=== PATIENT | female | born 1980 | race Caucasian/White ===

== ENCOUNTER → 2017-10-18 08:23 | Outpatient (CLI) | payer BC, SELFPAY ==
[2017-10-18 09:27] LABS: Hematocrit 38.9 % (37-47); Hemoglobin 12.8 g/dl (12.0-15.0); Mean Corp Hgb Conc 32.9 g/gl (32-36); Mean Corpuscular Hgb 31.1 pg (27.0-32.0); Mean Corpuscular Volume 94.6 fL (81-99); Mean Platelet Vol. 10.4 fl (6.2-12.0); Platelet Count 305 K/mm3 (150-450); RBC Distribution Width CV 12.9 % (11.6-14.6); RBC Distribution Width SD 44.5 fl (35.1-43.9); Red Blood Count 4.11 M/mm3 (4.2-5.4); Scan Indicated on CBC? Y/N NO; White Blood Count 3.7 K/mm3 (4.4-11.0)
[2017-10-18 09:41] LABS: Albumin, Serum 3.7 g/dL (3.2-5.0); BUN 11 mg/dL (7-18); Creatinine, Serum 0.73 mg/dL (0.55-1.02); EST Glomerular Filtration Rate 94 mL/min (>60); Est Glom Filt Rate - Afr Amer 113 mL/min (>60); Glucose 142 mg/dL (74-106); Protein, Total 7.7 g/dL (6.4-8.2)
[2017-10-18 09:42] LABS: ALB/GLOB Ratio 0.9 RATIO (0.9-2.4); AST(SGOT) 11 U/L (15-37); Alanine Aminotransfer ALT/SGPT 18 U/L (13-56); Alkaline Phosphatase 50 U/L (45-117); Anion Gap 4 (5-15); Calcium,Total 8.4 mg/dL (8.5-10.1); Chloride 105 mmol/L (98-107); Cholesterol 176 mg/dL (200); High Density Lipoprotein 41 mg/dL; Potassium 4.2 mmol/L (3.5-5.1); Sodium Level 139 mmol/L (136-145); Triglycerides 111 mg/dL; Very Low Density Lipoprotein 22 mg/dL (5-40)
[2017-10-18 09:45] LABS: Microalbumin,Random Urine 5.4 mg/L (NO RANGE EST.)
== END ==
PROVIDERS: PCP Nurse Practitioner Adult Health; Visit Provider Nurse Practitioner Adult Health
DX: E11.9 Type 2 diabetes mellitus without complications (principal); Z13.220 Encounter for screening for lipoid disorders
CPT/HCPCS: 36415; 80053; 80061; 82043; 85027

== ENCOUNTER 2018-01-05 04:11 | Emergency (ER) | payer BC, MEDICAID, SELFPAY ==
[2018-01-05 04:12] VITALS: BP 148/88; PULSE 77; RESP 18; TEMP 36.8; O2SAT 98; BMI 41.0
--- NOTE | 2018-01-05 04:40 | ED.DCSUM_ITS ---
History of Present Illness Chief Complaint: Upper Extremity Injury Informant: Patient Onset: Days - 3-4 Timing: Continuous Quality: shock-like Location: BUE, worse on right; includes some fingers but not all Current Severity: Moderate Maximum Severity: Moderate Worsened by: nothing Relieved by: nothing Associated Symptoms: weakness RUE, paresthesias Narrative: Patient has had this off and on for multiple months to almost a year. She saw her doctor and is being worked up for possible MS, given the paresthesias she is having, and has an MRI of the brain ordered and preapproved. She is having no headaches or neck pain or diplopia. No recent head or neck injury. No symptoms in her legs. Pain is worse tonight. Past Medical History - Allergies and Home Meds Allergies/Adverse Reactions: Allergies pioglitazone [From [employer]] Allergy (Verified 02/25/17 12:09) ABSCESS ABSCESS FORMATION Primary Care Physician: Pat Hancock NP-C [Primary Care Provider] - 3-5 Days if not improving Smoking Status: Never smoker Review of Systems All systems negative except as indicated Musculoskeletal: Denies: Neck pain, Back pain Skin: Denies: Rash Neurological: Reports: Weakness, Parasthesia. Denies: Headache Physical Exam Vital Signs/Narrative: Vital Signs Temp Pulse Resp BP Pulse Ox 01/05/18 04:12 98.2 F 77 18 148/88 H 98 General: Well nourished, Well developed Head: Normocephalic, Atraumatic Eyes: Perrl, EOMI ENT: Moist mucous membranes, No rhinorrhea Neck: Supple, Nontender, No lymphadenopathy Extremities: Nontender, No edema Skin: Normal color, No rash Neurological: Alert, Oriented x3, Cranial nerves II-XII grossly intact, Normal Strength, Parasthesia - RUE Psychological: Normal affect Diagnostic/Tx/Re-eval - Medical Decision Making I distracted the patient's head, this greatly improved her upper extremity paresthesias. She is not objectively weak. I feel this is probably radicular in nature. I discussed this with the patient, and advised that she see if an MRI of the neck could be added to her brain, advised to discuss with her PCP after the weekend. Gave her an injection of Toradol here, which she was comfortable with. ED Disposition - Plan for ED Patient: Disposition: Home or Assisted Living Chief Complaint: Upper Extremity Injury Diagnosis: Cervical radiculopathy Instructions: ED Cervical Radiculopathy Referrals: Pat Hancock NP-C [Primary Care Provider] - 3-5 Days if not improving
[2018-01-05] MEDS: Ketorolac 60 MG/2 ML Vial IM (04:48)
[2018-01-05 05:14] VITALS: BP 136/78; PULSE 85; RESP 18; O2SAT 98
== END 2018-01-05 05:15 | disposition home or self-care (01) ==
LOC: ED 04:44
PROVIDERS: Emergency Provider Emergency Medicine; PCP Nurse Practitioner Adult Health
DX: M54.12 Radiculopathy, cervical region (principal); Z79.84 Long term (current) use of oral hypoglycemic drugs; Z79.899 Other long term (current) drug therapy
CPT/HCPCS: 96372; 99282

== ENCOUNTER 2018-01-11 08:43 | Emergency (ER) | payer BC, MEDICAID, SELFPAY ==
[2018-01-11 08:44] VITALS: BP 155/94; PULSE 70; RESP 16; TEMP 36.4; O2SAT 97; BMI 41.0
--- NOTE | 2018-01-11 08:56 | CT_ITS ---
STUDY: CT BRAIN WITHOUT CONTRAST REASON FOR EXAM: Female, 37 years old. Right arm tremors and tingling. RADIATION DOSAGE (If Supplied By Facility): CTDIvol = ( 44.99 ) mGy, DLP = ( 779.24 ) mGycm TECHNIQUE: Transaxial CT imaging of the brain was performed without administration of intravenous contrast material. Individualized dose optimization techniques were used for this CT. COMPARISON: None. FINDINGS: Normal soft tissue structures. Normal calvarium. Normal size ventricles and extra-axial spaces for the patient's age. Normal white matter tracts of the cerebral hemispheres. Normal basal ganglia and thalami. Normal brainstem. Normal cerebellum. There is no intracranial hemorrhage. There are no findings of an acute ischemic infarction. Normal visualized paranasal sinuses. CT/Brain/Head without Contrast IMPRESSION: Normal unenhanced CT scan of the brain. Electronically Signed: Leobardo Urbina MD at 9:44 EDT Tel [phone], Service support ,
--- NOTE | 2018-01-11 08:57 | CT_ITS ---
STUDY: CT CERVICAL SPINE WITHOUT CONTRAST REASON FOR EXAM: Female, 37 years old. Right arm tremors and tingling. RADIATION DOSAGE (If Supplied By Facility): CTDIvol = ( 28.91 ) mGy, DLP = ( 582.91 ) mGycm TECHNIQUE: High resolution transaxial imaging was performed without contrast material. Sagittal and coronal images were reconstructed. Individualized dose optimization techniques were used for this CT. COMPARISON: None FINDINGS: Normal craniovertebral junction. Normal anterior atlantoaxial articulation. Normal odontoid process. There is straightening of the normal cervical lordosis. Normal vertebral bodies and posterior osseous elements. C2-3: Normal endplates. Normal disc height and morphology. Normal central canal and intervertebral neuroforamina. C3-4: Normal endplates. Normal disc height and morphology. Normal central canal and intervertebral neuroforamina. C4-5: Normal endplates. Normal disc height and morphology. Normal central canal and intervertebral neuroforamina. C5-6: Central posterior spondylosis is seen at the C5-C6 level. This causes mild compression of the anterior aspect of the thecal sac. This extends into the right side of the midline. Mild compression of the exiting nerve root at that site. C6-7: Normal endplates. Normal disc height and morphology. Normal central canal and intervertebral neuroforamina. C7-T1: Normal endplates. Normal disc height and morphology. Normal central canal and intervertebral neuroforamina. Normal visualized soft tissue structures. CT/Spine Cervical without Contras IMPRESSION: Central and right paracentral spondylosis at the C5-C6 level causing central compression of the thecal sac with extension to the right intervertebral foramen. This causes mild compression of the exiting nerve root at that site. Electronically Signed: Leobardo Urbina MD at 9:46 EDT Tel [phone], Service support ,
--- NOTE | 2018-01-11 08:59 | ED.VISSUMM ---
- ER Visit Summary Date of Service: 01/11/18 Chief Complaint: Tremors History of Present Illness: The patient is a 37 F for several month history of pain down her right arm with intermittent numbness. Today she describes numbness to her 4 fingers but not her thumb. She states is also had some intermittent tremors that were worse today. Patient's sister has a history of MS. Her primary care physician has scheduled an MRI of her neck to be done next week. Patient also has an order for an MRI of the brain is not yet scheduled. Patient presented today due to worsening symptoms. She states her pain is well controlled at this time as she did take ibuprofen this morning. Physical Examination: Blood pressure is 155/94, otherwise vitals are normal. Patient is sitting upright in bed no acute distress. Head neck examination reveals tenderness in the right lower cervical paraspinal muscles. Heart is regular rate and rhythm. Lung sounds are clear. Abdomen is soft nontender. Neuro exam reveals normal strength and sensation on testing. She does have intermittent tremor noted to the right upper extremity. She has good sensation on testing and strong distal pulses throughout. Test Results: CBC and chemistry studies are unremarkable. CT the head is normal. CT the C-spine shows central and right paracentral spondylosis at C5-C6 causing central compression of the thecal sac with extension to the right intervertebral foramen. There is mild compression of the exiting nerve root at this site. Emergency Department Course and Treatment: Patient was given IV fluids and a small dose of IV Ativan. On repeat evaluation she is resting completely. Tremor has completely resolved at this point. Tremor has been intermittent I do not believe represents any kind of seizure activity. I believe she is getting muscle spasm pinching on the nerve triggering her spasm. She will be treated with Valium. She will come in for her scheduled MRIs this coming week. Treatment Plan: [] Disposition: Discharge Impression: Cervical radiculopathy with tremor This note was generated with IMGuest dictation software. It may contain incorrect words, spelling, and punctuation that were not noted in review of the chart prior to signing ED Disposition - Plan for ED Patient: Chief Complaint: Upper Extremity Injury Referrals: Pat Hancock, LIVIA-C [Primary Care Provider] -
[2018-01-11 09:23] LABS: Absolute Lymphocyte Count 1.52 X10^3/ul (0.83-4.51); Absolute Neutrophil Count 2.3 X10^3/uL (2.0-7.7); Basophil# 0.01 X10^3/uL; Basophil% 0.2 % (0-1); Eosinophil# 0.09 X10^3/uL; Hematocrit 39.6 % (37-47); Hemoglobin 13.2 g/dl (12.0-15.0); Lymphocyte # 1.52 X10^3/ul (4.0); Lymphocyte % 34.4 % (19-41); Mean Corp Hgb Conc 33.3 g/gl (32-36); Mean Corpuscular Hgb 31.7 pg (27.0-32.0); Mean Platelet Vol. 10.1 fl (6.2-12.0); Monocyte# 0.55 X10^3/uL; Monocyte% 12.4 % (0-10); Neutrophil # 2.25 X10^3/uL (2.7-7.7); Platelet Count 284 K/mm3 (150-450); RBC Distribution Width CV 12.7 % (11.6-14.6); RBC Distribution Width SD 43.6 fl (35.1-43.9); Red Blood Count 4.17 M/mm3 (4.2-5.4); White Blood Count 4.4 K/mm3 (4.4-11.0)
[2018-01-11 09:24] LABS: POSITIVE COUNT NO; POSITIVE DIFFERENTIAL NO; POSITIVE MORPHOLOGY NO
[2018-01-11] MEDS: LORazepam 2 MG/ML Syringe 0.5 MG IV (09:24)
[2018-01-11] MEDS: 0.9% Normal Saline 1,000 ML 150 ML IV (09:25)
[2018-01-11 09:30] LABS: Anion Gap 5 (5-15); BUN 11 mg/dL (7-18); BUN/Creat Ratio 13.4 RATIO (10-20); Calcium,Total 8.8 mg/dL (8.5-10.1); Chloride 104 mmol/L (98-107); Creatinine, Serum 0.82 mg/dL (0.55-1.02); EST Glomerular Filtration Rate 82 mL/min (>60); Est Glom Filt Rate - Afr Amer 100 mL/min (>60); Estimated Creatinine Clearance 79.54 ml/min; Glucose 112 mg/dL (74-106); Potassium 4.1 mmol/L (3.5-5.1); Sodium Level 137 mmol/L (136-145)
--- NOTE | 2018-01-11 09:55 | ED.DEP ---
ED Disposition - Plan for ED Patient: Disposition: Home or Assisted Living Chief Complaint: Upper Extremity Injury Instructions: ED Spasm Muscle, ED Cervical Radiculopathy Prescriptions: Diazepam [Valium] 5 mg PO Q8 PRN #10 tablet PRN Reason: Muscle Spasm Referrals: Pat Hancock, [employer] MANAGER-C [Primary Care Provider] - 5-7 Days
[2018-01-11 10:11] VITALS: BP 132/75; PULSE 84; RESP 15; O2SAT 98
== END 2018-01-11 10:12 | disposition home or self-care (01) ==
PROVIDERS: Emergency Provider Emergency Medicine; Family Provider Nurse Practitioner Adult Health; PCP Nurse Practitioner Adult Health
DX: M54.12 Radiculopathy, cervical region (principal); R25.1 Tremor, unspecified; Z79.84 Long term (current) use of oral hypoglycemic drugs; Z79.899 Other long term (current) drug therapy
CPT/HCPCS: 70450; 72125; 80048; 85025; 96361; 96374; 99283; J7030; A4216

== ENCOUNTER → 2018-01-19 16:31 | Outpatient (CLI) | payer BC, MEDICAID, SELFPAY ==
[2018-01-19 17:30] LABS: Anion Gap 5 (5-15); BUN 10 mg/dL (7-18); BUN/Creat Ratio 11.4 RATIO (10-20); Calcium,Total 8.8 mg/dL (8.5-10.1); Chloride 103 mmol/L (98-107); Creatinine, Serum 0.88 mg/dL (0.55-1.02); EST Glomerular Filtration Rate 76 mL/min (>60); Est Glom Filt Rate - Afr Amer 92 mL/min (>60); Glucose 137 mg/dL (74-106); Sodium Level 138 mmol/L (136-145); Thyroid Stim Hormone (TSH) 2.49 uIU/mL (0.358-3.74); Vitamin B12 350 pg/mL (211-911)
--- NOTE | 2018-01-19 17:30 | MRI_ITS ---
STUDY: MRI CERVICAL SPINE WITHOUT CONTRAST REASON FOR EXAM: Female, 37 years old. Right arm tremors, RIGHT hand swelling, bilat. arm pain. Concern for multiple sclerosis TECHNIQUE: Standardized fat and water weighted pulse sequences were obtained in the sagittal and axial planes. COMPARISON: CT January 11, 2018 FINDINGS: Normal foramen magnum and brainstem-cervical cord junction. Normal craniovertebral junction. Normal anterior atlantoaxial articulation. Normal odontoid process. There is straightening of the normal cervical lordosis. Normal vertebral bodies and posterior osseous elements. C2-3: Normal endplates. Normal disc height, signal and morphology. Normal central canal and intervertebral neural foramina. C3-4: Normal endplates. Normal disc height, signal and morphology. Normal central canal and intervertebral neural foramina. C4-5: Normal endplates. Normal disc height, signal and morphology. Normal central canal and intervertebral neural foramina. C5-6: Disc osteophyte complex with moderate to severe central canal stenosis and deformity of the ventral cord. Severe left and moderate right foraminal stenoses. C6-7: Central disc protrusion with mild central canal stenosis. C7-T1: Normal endplates. Normal disc height, signal and morphology. Normal central canal and intervertebral neural foramina. No intrinsic cord signal abnormalities are seen. Normal visualized soft tissue structures. 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 Severe left and moderate right foraminal stenoses at the 56 level. No intrinsic cord signal abnormalities are seen. Electronically Signed: Simón Baxter MD at 2:56 EDT Tel , Service support ,
--- NOTE | 2018-01-19 18:15 | MRI_ITS ---
STUDY: MRI BRAIN WITH AND WITHOUT CONTRAST REASON FOR EXAM: Female, 37 years old. Right arm tremors, RIGHT hand swelling, bilat. arm pain. Concern for multiple sclerosis. TECHNIQUE: Standardized multiplanar fat and water weighted pulse sequences were obtained. 11 ml of Gadavist contrast material was administered intravenously for the contrast portion of the examination. COMPARISON: None. FINDINGS: Normal size of the ventricles and extra-axial spaces for the patient's age. There are a limited number of small white matter hyperintensities, distributed throughout the deep white matter tracts of the cerebral hemispheres, consistent with mild chronic white matter ischemic changes. Normal bilateral basal ganglia. Normal thalami. There is no extra-axial fluid accumulation. Normal flow voids within the major intracranial circulation suggesting patency by spin echo criteria. Normal venous enhancement. There is no enhancing intra-axial or extra-axial abnormality. Normal sella turcica, pituitary gland, infundibular stalk, optic chiasm and hypothalamus. Normal tectal plate and pineal gland. Normal midbrain, figueroa and medulla. Normal cerebellum. Normal basal cisterns. Normal bilateral temporal bones. Normal bilateral internal auditory canals. MRI/Brain W/WO Contrast IMPRESSION: No acute intracranial abnormality or masses. Mild chronic microvascular ischemic changes. Electronically Signed: Sandi Pimentel MD at 16:00 EDT Tel , Service support ,
== END ==
PROVIDERS: Family Provider Nurse Practitioner Adult Health; PCP Nurse Practitioner Adult Health; Visit Provider Nurse Practitioner Adult Health
DX: M54.16 Radiculopathy, lumbar region (principal); R27.0 Ataxia, unspecified; R42 Dizziness and giddiness; R20.2 Paresthesia of skin; R68.89 Other general symptoms and signs; H53.8 Other visual disturbances; R53.83 Other fatigue; Z13.29 Encounter for screening for other suspected endocrine disorder
CPT/HCPCS: 36415; 70553; 72141; 80048; 82607; 84443; A9585

== ENCOUNTER 2018-08-22 06:18 | Emergency (ER) | payer OTHER, BC, MEDICAID, SELFPAY ==
[2018-08-22 06:19] VITALS: BP 168/94; PULSE 64; RESP 20; TEMP 37.1; O2SAT 99; BMI 42.4
--- NOTE | 2018-08-22 06:31 | RAD_ITS ---
STUDY: X-RAY - CERVICAL SPINE REASON FOR EXAM: Female, 38 years old. Neck pain TECHNIQUE: 4 view(s) of the cervical spine were obtained. COMPARISON: None FINDINGS: There is slight loss of the normal lordotic curvature of the cervical spine with evidence of an anterior discectomy and fusion at the C5-C6 level. The procedure is secured by a plate and screws through C5 and C6 vertebral bodies. The hardware is in good position. The prevertebral soft tissues are normal. RAD/Cerv Spine 2 or 3 Views IMPRESSION: Anterior discectomy and fusion at C5-C6. Loss of the normal lordotic curvature of the cervical spine. This may be from muscle spasm. No fractures. No disc disease Electronically Signed: Derek Villagran MD at 7:20 EDT Tel , Service support ,
[2018-08-22] MEDS: oxyCODONE 5 MG Tablet 10 MG PO (06:34)
--- NOTE | 2018-08-22 07:52 | ED.VISSUMM ---
- ER Visit Summary Date of Service: 08/22/18 Chief Complaint: Neck pain History of Present Illness: The patient is a 38 F who had a C5/C6 fusion in February [address] Vivek Fernandez. She reports approximate 5:00 this morning she was pulling an empty cart at work and had the abrupt onset of a sharp pain the left side of her neck. States it was 10 at 10 at worst and is 4-10 currently. Is worsened by movement and relieved by rest. She reports that she has paresthesias in her left hand and weakness that began at the same time. She is right-hand dominant. She does report she had similar symptoms previously but not to this extreme. She denies any other trauma. No fall or MVA. 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 Physical Examination: Vitals: Stable. Afebrile. Neck: No vertebral tenderness. Full ROM without difficulty. Cleared by NEXUS criteria. Mild tenderness palpation over the left trapezius muscle. Patient reports a decreased sensation to light touch in the left first through fifth fingers. At this is not in an anatomic distribution. 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 She has normal median/ulnar/radial nerve function and motor distributions. She has 2+ biceps and triceps reflexes. Back: No vertebral tenderness. General: A&O x 3. NAD. Cardiovascular exam: Regular rate and rhythm, no murmur, rub or gallop. Respiratory exam: Chest nontender. No crepitus. Clear to auscultation bilaterally. No wheezes or stridor. Abdominal exam: Soft, nontender, nondistended, normal bowel sounds. No pain in RUQ or LUQ specifically. No peritoneal signs. Extremity: Atraumatic. No pain with range of motion. Test Results: C-spine x-ray shows the hardware to be intact. No acute disease. Emergency Department Course and Treatment: Patient was treated with a dose of oxycodone p.o. She is resting comfortably. Treatment Plan: Patient will be discharged instructions follow-up with [facility] for further evaluation and treatment. I did discuss with her that if she continues to have symptoms she would require an MRI for further evaluation. I also suggested that she follow-up with her spine surgeon, Dr. Vivek Fernandez, as soon as possible. She refused pain medications for home. Return to the emergency department for any worsening symptoms. Disposition: To home in improved and stable condition. Impression: 1. Cervical strain. 2. History of cervical fusion. This note was generated with Jobydu dictation software. It may contain incorrect words, spelling, and punctuation that were not noted in review of the chart prior to signing ED Disposition - Plan for ED Patient: Disposition: Home or Assisted Living Instructions: ED Cervical Radiculopathy Referrals: [facility] [GROUP OF PHYSICIANS] - As soon as possible
== END 2018-08-22 08:03 | disposition home or self-care (01) ==
PROVIDERS: Emergency Provider Emergency Medicine; Family Provider Nurse Practitioner Adult Health; PCP Nurse Practitioner Adult Health
DX: S16.1XXA Strain of muscle, fascia and tendon at neck level, initial encounter (principal); Z98.1 Arthrodesis status; E11.9 Type 2 diabetes mellitus without complications; F32.9 Major depressive disorder, single episode, unspecified; Z79.84 Long term (current) use of oral hypoglycemic drugs; Z79.899 Other long term (current) drug therapy; X50.0XXA Overexertion from strenuous movement or load, initial encounter; Y93.89 Activity, other specified; Y92.89 Other specified places as the place of occurrence of the external cause; Y99.0 Civilian activity done for income or pay
CPT/HCPCS: 72040; 99283

== ENCOUNTER → 2018-09-14 16:08 | Outpatient (CLI) | payer BC, MEDICAID, SELFPAY ==
[2018-08-24 10:15] VITALS: BMI 42.4
--- NOTE | 2018-09-14 16:21 | MRI_ITS ---
HISTORY: urinary and fecal incontinence x 2 months EXAMINATION: MR Spine Lumbar W/O Contrast TECHNIQUE: Multiplanar and multisequence MR images of the lumbar spine. IV Contrast dosage and agent: None. COMPARISON: None FINDINGS: The lumbar vertebra show normal height and alignment. No fracture or acute osseous abnormality. No suspicious bony lesion. Discogenic mild endplate degenerative signal to the right of midline at the L5-S1 level. The conus shows normal signal intensity and terminates normally at the L1-2 level. F60-D7-N3-8: The disc space heights are preserved. No posterior disc protrusion, foraminal, or spinal stenosis. L3-4: Mild disc dehydration. The disc space height is preserved. No posterior disc protrusion, foraminal, or spinal stenosis. L4-5: The disc space height is preserved. No posterior disc protrusion, foraminal, or spinal stenosis. L5-S1: Disc dehydration accompanied by mild endplate degenerative signal to the right of midline. The disc space height is grossly preserved. Broad-based posterior lateral, foraminal, and far lateral disc protrusion to the right with narrowing of the ipsilateral neural foramen and mild deformity of the exiting right L5 nerve root. The left neural foramen appears patent. No significant central canal narrowing. MRI/Spine Lumbar (Routine) IMPRESSION: 1. L5-S1 broad-based posterolateral, foraminal, and far lateral disc protrusion to the right with ipsilateral foraminal narrowing and mild deformity of the exiting right L5 nerve root. 2. No central canal stenosis seen. Normal lumbar vertebral alignment. at 0540 Reported and signed by: Chau Schmidt MD Electronically Signed: Chau Schmidt, at 5:38 EDT Tel , Service support ,
== END ==
PROVIDERS: Family Provider Nurse Practitioner Adult Health; PCP Nurse Practitioner Adult Health; Referring Provider Orthopaedic Surgery; Visit Provider Orthopaedic Surgery
DX: M48.061 Spinal stenosis, lumbar region without neurogenic claudication (principal)
CPT/HCPCS: 72148

== ENCOUNTER 2020-04-20 16:44 | Emergency (ER) | payer MEDICAID, SELFPAY ==
[2018-08-24 10:15] VITALS: BMI 42.4
[2020-04-20 16:46] VITALS: BP 174/95; PULSE 89; RESP 20; TEMP 36.4; O2SAT 98; BMI 41.7
--- NOTE | 2020-04-20 17:32 | ED.DCSUM_ITS ---
- ER Visit Summary Date of Service: 04/20/20 Chief Complaint: Back pain History of Present Illness: The patient is a 40 F presents today with back pain. She is been having back pain for weeks. She has a history of chronic back issues. She sees Dr. Da Silva with neurosurgery. She was seen at [facility] days ago and she was given Pyote and prednisone. She is not having improvement of her symptoms. Pain is in the left lumbar region and radiates down the left leg. She denies any bowel or bladder incontinence. She has not had a fever. She denies dysuria. Had a history of neck surgery but no surgeries on her lower back. However, she has been told previously that she has bulging disks. Physical Examination: Vital signs reviewed. HEENT exam unremarkable. Heart is regular rate and rhythm without murmurs. Lungs are clear to auscultation. Abdomen is soft and nontender. Patient's back is tender in the left lumbar paraspinal region. Extremities reveal no edema. Skin exam normal. Neurologic exam normal. She has normal and equal reflexes. Test Results: None performed Emergency Department Course and Treatment: At this point without any falls or injury I do not feel the patient requires any further imaging studies. I will give her Toradol and Norflex here. I will give her Dolobid and Flexeril to take at home. She is following up in 2 days with her neurosurgeon. Treatment Plan: [] Disposition: Discharge Impression: Acute on chronic back pain This note was generated with iZotope dictation software. It may contain incorrect words, spelling, and punctuation that were not noted in review of the chart prior to signing ED Disposition - Plan for ED Patient: Disposition: Home or Assisted Living Instructions: ED Back Pain Acute or Chronic Prescriptions: Diflunisal [Dolobid] 500 mg PO TID #20 tab Transmission Status: Pending to [id number] cycloBENZAPRine HCl [Flexeril] 10 mg PO TID PRN #20 tab PRN Reason: Muscle Spasm Transmission Status: Pending to [id number] Referrals: Pat Hancock NP, STUDIO MUSICIAN-C [Primary Care Provider] -
[2020-04-20] MEDS: Orphenadrine 60 MG/2 ML Ampul IM (17:56)
[2020-04-20] MEDS: Ketorolac 60 MG/2 ML Vial IM (17:57)
[2020-04-20 18:21] VITALS: BP 146/85; PULSE 72; RESP 18
== END 2020-04-20 18:27 | disposition home or self-care (01) ==
PROVIDERS: Emergency Provider Emergency Medicine; PCP Nurse Practitioner Adult Health
DX: G89.29 Other chronic pain (principal)
CPT/HCPCS: 96372; 99282

== ENCOUNTER 2021-05-05 14:30 | Outpatient (RCR) | payer MEDICAID, SELFPAY | END 2021-05-11 23:59 | disposition home or self-care (01) | LOC: DC 14:30 | PROVIDERS: PCP Nurse Practitioner Adult Health; Visit Provider Nurse Practitioner Adult Health | DX: E11.9 Type 2 diabetes mellitus without complications (principal); E66.01 Morbid (severe) obesity due to excess calories; Z68.41 Body mass index [BMI] 40.0-44.9, adult | CPT/HCPCS: G0108 ==

== ENCOUNTER 2021-05-17 14:24 | Outpatient (RCR) | payer MEDICAID, SELFPAY | END 2021-06-11 23:59 | LOC: DC 14:24 | PROVIDERS: PCP Nurse Practitioner Adult Health; Visit Provider Nurse Practitioner Adult Health | DX: E11.9 Type 2 diabetes mellitus without complications (principal) | CPT/HCPCS: 97802 ==

== ENCOUNTER 2021-07-07 14:30 | Outpatient (RCR) | payer MEDICAID, SELFPAY | END 2021-07-12 23:59 | LOC: DC 14:30 | PROVIDERS: PCP Nurse Practitioner Adult Health; Visit Provider Nurse Practitioner Adult Health | DX: E11.9 Type 2 diabetes mellitus without complications (principal); E66.01 Morbid (severe) obesity due to excess calories; Z68.41 Body mass index [BMI] 40.0-44.9, adult; Z71.3 Dietary counseling and surveillance | CPT/HCPCS: 97803; G0108 ==

== ENCOUNTER 2021-07-27 14:30 | Outpatient (RCR) | payer MEDICAID, SELFPAY | END 2021-08-09 23:59 | LOC: DC 14:30 | PROVIDERS: PCP Nurse Practitioner Adult Health; Referring Provider Nurse Practitioner Adult Health; Visit Provider Nurse Practitioner Adult Health | DX: E11.9 Type 2 diabetes mellitus without complications (principal); E66.01 Morbid (severe) obesity due to excess calories; Z68.41 Body mass index [BMI] 40.0-44.9, adult | CPT/HCPCS: 97803 ==

== ENCOUNTER 2021-09-07 15:00 | Outpatient (RCR) | payer MEDICAID, SELFPAY | END 2021-09-09 23:59 | LOC: DC 15:00 | PROVIDERS: PCP Nurse Practitioner Adult Health; Referring Provider Nurse Practitioner Adult Health; Visit Provider Nurse Practitioner Adult Health | DX: E11.9 Type 2 diabetes mellitus without complications (principal); E66.01 Morbid (severe) obesity due to excess calories; Z68.41 Body mass index [BMI] 40.0-44.9, adult | CPT/HCPCS: 97803 ==

== ENCOUNTER 2021-09-13 10:06 | Emergency (ER) | payer MEDICAID, SELFPAY ==
[2021-09-13 10:07] VITALS: BP 136/81; PULSE 87; RESP 18; TEMP 36.2; O2SAT 97; BMI 37.5
--- NOTE | 2021-09-13 10:58 | EDS_ITS ---
HPI History of Present Illness Chief Complaint: General Illness Detail of Chief Complaint: Left anterior chest pain Informant: patient Onset/Context/Timing Onset: Hours (Onset 0800) Context: Sudden Onset Timing: Continuous Quality: Dull sharp Location: Left anterior chest Current Severity: Mild Maximum Severity: Moderate Worsened by: Nothing Relieved by: Nothing Associated Symptoms Associated Symptoms: Increase shortness of breath and nausea Narrative Narrative: Patient is a 41-year-old woman who works at [employer]. While she was at the cooking area she became short of breath. She then developed left- sided dull sharp chest discomfort without radiation. She had increased shortness of breath when the chest pain started. She felt sick to her stomach. She states she was sweaty but she sweats when she is cooking. She denies radiation of the pain. She denies prior history of chest pain. She denies history of hiatal hernia, reflux or peptic ulcers. She denies intolerance to greasy or fried foods. She does have history of type 2 diabetes x15 years and is on antihypertensive and anticholesterol med for prophylaxis. She denies hist ory of PE or DVT. Denies leg pain, swelling discoloration. Denies black or maroon-colored stool. Prior similar symptoms: No Recent Illness/Hospitalization: No [facility] Medical History Anemia Back pain Chest pain Diabetes Difficulty balancing Fatigue Hemorrhoids Incontinence Limb weakness Migraines Shoulder pain SOB (shortness of breath) Home Medications ibuprofen 600 mg PO 4X/DAY PRN PRN #20 tab 02/25/17 [Rx Last Taken Unknown] metformin 1,000 mg PO DAILY 01/05/18 [History Last Taken Unknown] acetaminophen 650 mg PO Q6H PRN PRN 08/22/18 [History Last Taken Unknown] atorvastatin 10 mg PO DAILY 09/13/21 [History Last Taken Unknown] glimepiride 4 mg PO DAILY 09/13/21 [History Last Taken Unknown] losartan 25 mg PO DAILY 09/13/21 [History Last Taken Unknown] sertraline 100 mg PO DAILY 09/13/21 [History Last Taken Unknown] Allergy/AdvReac Type Severity Reaction Status Date / Time pioglitazone [From Actos] Allergy ABSCESS Verified 04/20/20 16:46 Family History Other Bipolar 1 disorder Diabetes Heart disease Multiple sclerosis Surgical History Cervical vertebral fusion H/O tubal ligation History of cervical discectomy History of tonsillectomy Hx of bilateral breast reduction surgery Social History (Updated 09/13/21 @ 11:[address] Valdo Syed MD) household members: spouse Smoking Status: Never smoker substance use type: does not use ROS ROS ED Constitutional Constitutional ED: Denies chills, fever(s), subjective or sweats Eyes Eyes: Reports blurry vision; Denies change in vision or diplopia ENT ENT ED: Denies ear pain, rhinorrhea or sore throat Cardiovascular Cardiovascular: Denies chest pain, orthopnea, palpitations, paroxysmal nocturnal dyspnea or racing heartbeat Respiratory/Chest Respiratory/Chest: Reports dyspnea; Denies cough, dyspnea on exertion, orthopnea, paroxysmal nocturnal dyspnea or sputum Gastrointestinal Gastrointestinal: Reports nausea; Denies abdominal pain, constipation, diarrhea, melena or vomiting Genitourinary Genitourinary ED: Denies dysuria, hematuria or urinary frequency Musculoskeletal Musculoskeletal: Reports back pain; Denies arthralgias, myalgias or neck pain Integumentary Denies abscess, Abrasions or rash Neurologic Neurologic: Denies headache(s), paresthesias or weakness Endocrine Endocrinology: Denies polydipsia, polyphagia or polyuria Allergic/Immunologic Allergic/Immunologic ED: Denies mouth swelling, tongue swelling or urticaria EXAM Physical Exam Const Vital Signs: 09/13/21 10:07 09/13/21 10:40 09/13/21 11:11 Temperature 97.1 F L Temperature Source Temporal Pulse Rate 87 Respiratory Rate 18 Respiratory Pattern Normal Blood Pressure 136/81 H Blood Pressure Mean 99 Pulse Ox 97 Oxygen Delivery Method Room Air Room Air Positive well nourished, well developed and obese General Appearance ED: well developed and NAD; Negative for cyanotic, diaphoretic or pallor Nutritional Appearance: obese HEENT Reports TM's clear and moist mucous membranes HEENT Narrative: Uvula midline. There is no angioedema. No erythema or exudate. Ears are normal. Negative for trauma or tenderness Tympanic Membrane ED: Yes TM's clear Eyes PERRL and EOMs intact bilaterally General Eye ED: Negative for pale conjunctiva or scleral icterus Neck no lymphadenopathy, supple and no JVD Chest Wall inspection of chest normal Resp normal respiratory effort and clear to auscultation bilaterally Cardio regular rate, regular rhythm, S1 normal heart sound, S2 normal heart sound and no murmurs GI normal to inspection, nondistended, normoactive bowel sounds and non-distended; Negative for non-tender Palpation: soft and tender epigastric (To deep palpation only) and Villaseñor's sign Back/Spine no CVA tenderness Thoracic Spine / Upper Back: Negative for thoracic spinal tenderness or paraspinal muscle tenderness Extremity normal to inspection Extremity Narrative: There is no asymmetry, swelling, discoloration, leg vein distention, palpable cords or tenderness along the distribution of the deep venous system. General Extremety ED: Negative for edema or tenderness General Extremity: Negative for edema Neuro oriented x3, CN's II-XII intact bilaterally and no sensory deficits noted Sensorium / Orientation: alert Motor Exam: strength 5/5 throughout Psych mental status grossly normal Skin no rashes or lesions noted, no wounds and skin turgor normal General Skin Exam: Negative for jaundice or pallor MDM MDM MDM Narrative Medical decision making narrative: Patient middle-aged woman with atypical chest pain. She does have risk factors. Troponin is less than 3. With troponin less than 3 per algorithm negative predictive value for cardiac ischemia is 100%. Therefore patient be discharged home. Lab Data Labs: Laboratory Results - last 24 hr 09/13/21 09/13/21 09/13/21 11:14 11:14 12:10 WBC 4.7 RBC 3.87 L Hgb 12.3 Hct 36.5 L MCV 94.3 MCH 31.8 MCHC 33.7 RDW Std Deviation 44.7 H RDW Coeff of Luis Enrique 12.9 Plt Count 298 MPV 10.5 Immature Gran % (Auto) 0.400 Neut % (Auto) 58.4 Lymph % (Auto) 29.6 [place] % (Auto) 10.3 H Eos % (Auto) 0.9 Baso % (Auto) 0.4 Absolute Neuts (auto) 2.7 Absolute Lymphs (auto) 1.38 Nucleated RBC % 0 Sodium Cancelled 137 Potassium Cancelled 3.9 Chloride Cancelled 104 Carbon Dioxide Cancelled 28.0 Anion Gap Cancelled 5 BUN Cancelled 10 Creatinine Cancelled 0.70 Estim Creat Clear Calc Cancelled 85.72 Est GFR (MDRD) Af Amer Cancelled 117 Est GFR (MDRD) Non-Af Cancelled 97 BUN/Creatinine Ratio Cancelled 14.3 Glucose Cancelled 73 L Calcium Cancelled 8.8 Troponin I High Sens Cancelled < 3 L Radiography Chest X-Ray - ED: 1 View (Single view portable chest x-ray was independently interpreted by me as normal. Cardiac silhouette size normal. Perihilar regions/mediastinum normal. Osseous structures normal.) Diagnostic Testing: Clinical Impression(s) from Imaging Studies Chest X-Ray 09/13/21 11:05 IMPRESSION: Normal x-ray examination of the chest. Electronically Signed: Leobardo Urbina MD at 12:30 EDT , EKG Initial EKG: Attestation: I personally reviewed and interpreted this EKG as follows: Interpretation: Sinus Rhythm (DKA is normal. Ventricular rate is 74. ND interval is 150 ms. Cures duration under 6 ms. QT duration 420 ms. Jenners is normal.) Discharge Plan Triage Chief Complaint: General Illness ED Provider: Valdo Syed Dx/Rx/DC Orders Clinical Impression: Left-sided chest pain Instructions: ED Chest Pain, Noncardiac Prescriptions: No Action ibuprofen 600 MG tablet 600 mg PO 4X/DAY PRN PRN (Reason: Pain) Qty: 20 RF: 0 metformin 1,000 MG tablet 1,000 mg PO DAILY RF: 0 acetaminophen 650 MG tablet extended release 650 mg PO Q6H PRN PRN (Reason: Pain) RF: 0 atorvastatin 10 mg tablet 10 mg PO DAILY RF: 0 sertraline 100 mg tablet 100 mg PO DAILY RF: 0 glimepiride 4 mg tablet 4 mg PO DAILY RF: 0 losartan 25 mg tablet 25 mg PO DAILY RF: 0 Primary Care Provider: Pat Hancock NP Referrals: Pat Hancock NP, [facility] HELPER-C [Primary Care Provider] - 3-5 Days Disposition Disposition: Home, Self Care
--- NOTE | 2021-09-13 10:58 | EKG12_ITS ---
Test Reason : SOB/CP Blood Pressure : / mmHG Vent. Rate : 074 BPM Atrial Rate : 074 BPM P-R Int : 150 ms QRS Dur : 106 ms QT Int : 420 ms P-R-T Axes : 035 015 031 degrees QTc Int : 466 ms Normal sinus rhythm Normal ECG Confirmed by DESIREE RODRIGUEZ, DELIA ([id number]), desk editor CHRIS DOOLEY ([id number]) on 09/15/2021 11:31:29 AM Referred By: NICKY Confirmed By:DELIA RAMÍREZ MD
--- NOTE | 2021-09-13 11:05 | RAD_ITS ---
STUDY: X-RAY CHEST REASON FOR EXAM: Female, 41 years old. Chest pain TECHNIQUE: Single AP portable view of the chest. COMPARISON: Comparison is made with prior study 04/30/2015. FINDINGS: EKG electrodes are seen. The lungs are clear and expanded. There is no demonstrated pleural abnormality. Normal size heart. Normal mediastinum and anuja. Normal visualized pulmonary arteries. Normal visualized aortic arch and descending thoracic aorta. Normal visualized thoracic spine. Normal visualized ribs, clavicles, and shoulders. There is no demonstrated abnormality of the visualized soft tissue structures of the upper abdomen. RAD/Chest 1 View (Portable) IMPRESSION: Normal x-ray examination of the chest. Electronically Signed: Leobardo Urbina MD at 12:30 EDT ,
[2021-09-13] MEDS: Aspirin 81 MG TAB.CHEW 324 MG PO (11:12)
[2021-09-13 11:28] LABS: Absolute Lymphocyte Count 1.38 X10^3/uL (0.83-4.51); Absolute Neutrophil Count 2.7 X10^3/uL (2.0-7.7); Basophil# 0.02 X10^3/uL; Basophil% 0.4 % (0-1); Eosinophil# 0.04 X10^3/uL; Eosinophils% 0.9 % (0-5); Hematocrit 36.5 % (37-47); Hemoglobin 12.3 g/dL (12.0-15.0); Lymphocyte # 1.38 X10^3/ul (0.83-4.51); Lymphocyte % 29.6 % (19-41); Mean Corp Hgb Conc 33.7 g/dL (32-36); Mean Corpuscular Hgb 31.8 pg (27.0-32.0); Mean Corpuscular Volume 94.3 fL (81-99); Mean Platelet Vol. 10.5 fl (6.2-12.0); Monocyte# 0.48 X10^3/uL; Monocyte% 10.3 % (0-10); NRBC Flagged by Analyzer 0 % (0-5); Neutrophil # 2.72 X10^3/uL (2.7-7.7); Neutrophil % 58.4 % (47-70); Platelet Count 298 K/mm3 (150-450); RBC Distribution Width CV 12.9 % (11.6-14.6); RBC Distribution Width SD 44.7 fl (35.1-43.9); Red Blood Count 3.87 M/mm3 (4.2-5.4); White Blood Count 4.7 K/mm3 (4.4-11.0)
[2021-09-13 12:35] LABS: Anion Gap 5 (5-15); BUN 10 mg/dL (7-18); BUN/Creat Ratio 14.3 RATIO (10-20); Calcium,Total 8.8 mg/dL (8.5-10.1); Chloride 104 mmol/L (98-107); EST Glomerular Filtration Rate 97 mL/min (>60); Est Glom Filt Rate - Afr Amer 117 mL/min (>60); Estimated Creatinine Clearance 85.72 ml/min; Glucose 73 mg/dL (74-106); Potassium 3.9 mmol/L (3.5-5.1); Sodium Level 137 mmol/L (136-145); Troponin-I HS (w/2H Reflex) < 3 pg/mL (3.0-54.0)
[2021-09-13 14:13] LABS: Reflex Troponin-HS? (from REC) Y
== END 2021-09-13 13:43 | disposition home or self-care (01) ==
PROVIDERS: Emergency Provider Emergency Medicine; PCP Nurse Practitioner Adult Health; Visit Provider Emergency Medicine
DX: R07.89 Other chest pain (principal); E11.9 Type 2 diabetes mellitus without complications; E66.9 Obesity, unspecified; Z79.899 Other long term (current) drug therapy; Z79.84 Long term (current) use of oral hypoglycemic drugs
CPT/HCPCS: 36415; 71045; 80048; 84484; 85025; 93005; 99285

== ENCOUNTER 2021-09-29 13:15 | Outpatient (RCR) | payer MEDICAID, SELFPAY | END 2021-10-09 23:59 | LOC: DC 13:15 | PROVIDERS: PCP Nurse Practitioner Adult Health; Referring Provider Nurse Practitioner Adult Health; Visit Provider Nurse Practitioner Adult Health | DX: E11.9 Type 2 diabetes mellitus without complications (principal); E66.01 Morbid (severe) obesity due to excess calories; Z68.41 Body mass index [BMI] 40.0-44.9, adult | CPT/HCPCS: 97803 ==

== ENCOUNTER 2022-01-01 09:58 | Emergency (ER) | payer MEDICAID, SELFPAY ==
[2022-01-01 09:59] VITALS: BP 128/80; PULSE 64; RESP 14; TEMP 36.5; O2SAT 99; BMI 38.9
--- NOTE | 2022-01-01 10:09 | CT_ITS ---
STUDY: CTA HEAD AND NECK WITH CONTRAST REASON FOR EXAM: Female, 41 years old. History, Signs T Symptoms headaches pt states headache everyday for 1 month T;on and off; and vision disturbance in right eye starting today pt has only tried Tylenol 1 time ADDITIONAL PROCESSED IMAGES D/T CONTRAST BOLUS RADIATION DOSAGE (If Supplied By Facility): CTDIvol = ( 22.96 ) mGy, DLP = ( 2273.52 ) mGycm TECHNIQUE: CT angiography was performed with a multi-detector CT scanner. Data acquisition was obtained from the skull base through the vertex following intravenous administration of IV 100mL [id number]-[id number]. MIP images were reconstructed from the axial data set. Post-processing of the angiographic images was performed, with multiplanar reformation and 3D reconstruction. Suboptimal contrast opacification of the arteries. Individualized dose optimization techniques were used for this CT. COMPARISON: Noncontrast head CT dated January 01, 2022. Head CT dated January 11, 2018. FINDINGS: Unremarkable bilateral petrous carotid arteries. Unremarkable right cavernous carotid artery with a normal supraclinoid bifurcation. Unremarkable left cavernous carotid artery with a normal supraclinoid bifurcation. Normal right A1 segments of the anterior cerebral artery. Normal left A1 segments of the anterior cerebral artery. Normal intact anterior communicating artery (ACOM). Normal bilateral A2 segments of the anterior cerebral arteries. Normal right M1 and M2 segments of the middle cerebral arteries, with a normal M1 bifurcation. Normal left M1 and M2 segments of the middle cerebral arteries, with a normal M1 bifurcation. There is non-visualization of the right posterior communicating artery (PCOM). There is non-visualization of the left posterior communicating artery (PCOM). Normal bilateral vertebral arteries. Normal basilar artery with a normal basilar bifurcation. The visualized bilateral superior cerebellar (SCA) arteries are normal. Normal bilateral P1, P2 and visualized P3 segments of the posterior cerebral arteries. There is no demonstrated aneurysm of the [place] of [place]. There is no demonstrated abnormality of the visualized brain. AORTIC ARCH: Grossly unremarkable visualized aortic arch and origins of the brachiocephalic, left common carotid, and left subclavian arteries. RIGHT CAROTID ARTERIES: Normal right common carotid artery (CCA). Normal right common carotid bulb. Normal origin of the right internal carotid (ICA) artery without a hemodynamically significant stenosis. Normal visualized cervical portion of the right internal carotid artery. Normal origin of the right external carotid artery (ECA). LEFT CAROTID ARTERIES: Normal left common carotid artery (CCA). Normal left common carotid bulb. Normal origin of the left internal carotid (ICA) artery without a hemodynamically significant stenosis. Normal visualized cervical portion of the left internal carotid artery. Normal origin of the left external carotid artery (ECA). VERTEBRAL ARTERIES: Normal bilateral vertebral arteries. CT/CTA Head AND Neck W/ Contrast IMPRESSION: 1. No demonstrated major intracranial arterial occlusion or hemodynamically significant stenosis. 2. Unremarkable bilateral cervical carotid and vertebral arteries. Electronically Signed: Gilbert Paul MD at 11:46 EDT Reading Location ID and State: [facility] / [place] , Service support ,
--- NOTE | 2022-01-01 10:12 | EX.ED.VIS.HA ---
HPI History of Present Illness Chief Complaint: Headache Detail of Chief Complaint: Headache off and on for 1 month Informant: patient Narrative Narrative: Patient presents to the emergency department with headaches for 1 month. Patient states that she has had a daily headache for 1 month. She has taken Tylenol and at times seems to help her pain. Pain is pressure-like and frontal. Bright lights seem to bother her more. She is had some nausea but no vomiting. Patient tells me her daughter recently got diagnosed with migraines. Patient herself is not had an issue with migraines. She denies any falls or head injuries. She denies recent illness. She denies fevers. Patient has an aunt that had brain aneurysms. No family history of brain tumors. Patient came in today because the headache was worse and she had some difficulty seeing out of the right eye that lasted about 4 hours. Now patient just complaining of some floaters in the right eye. Patient rates her headache a 7 out of 10. Prior similar symptoms: No PFSH PFSH Medical History Anemia Back pain Chest pain Diabetes Difficulty balancing Fatigue Hemorrhoids Incontinence Limb weakness Migraines Shoulder pain SOB (shortness of breath) Home Medications ibuprofen 600 mg tablet 600 mg PO 4X/DAY PRN PRN Pain #20 tabs 02/25/17 [Rx Last Taken Unknown] metformin 1,000 mg tablet 1,000 mg PO DAILY 01/05/18 [History Last Taken Unknown] acetaminophen 650 mg tablet,extended release 650 mg PO Q6H PRN PRN Pain 08/22/18 [History Last Taken Unknown] atorvastatin 10 mg tablet 10 mg PO DAILY 09/13/21 [History Last Taken Unknown] glimepiride 4 mg tablet 4 mg PO DAILY 09/13/21 [History Last Taken Unknown] losartan 25 mg tablet 25 mg PO DAILY 09/13/21 [History Last Taken Unknown] sertraline 100 mg tablet 100 mg PO DAILY 09/13/21 [History Last Taken Unknown] Allergy/AdvReac Type Severity Reaction Status Date / Time pioglitazone [From Actos] Allergy ABSCESS Verified 01/01/22 10:00 Family History Other Bipolar 1 disorder Diabetes Heart disease Multiple sclerosis Surgical History Cervical vertebral fusion H/O tubal ligation History of cervical discectomy History of tonsillectomy Hx of bilateral breast reduction surgery Social History (Updated 09/13/21 @ 11:[address] Valdo Syed MD) household members: spouse Smoking Status: Never smoker substance use type: does not use ROS ROS ED Review of Systems ROS Unobtainable: other Constitutional Constitutional ED: Reports lethargy; Denies chills, fever(s), sweats or weight loss Eyes Eyes: Reports change in vision; Denies blurry vision or diplopia ENT ENT ED: Denies rhinorrhea or sore throat Cardiovascular Cardiovascular: Reports chest pain and racing heartbeat; Denies orthopnea Respiratory/Chest Respiratory/Chest: Reports dyspnea and dyspnea on exertion; Denies cough, orthopnea or sputum Gastrointestinal Gastrointestinal: Denies abdominal pain, diarrhea, nausea or vomiting Genitourinary Genitourinary ED: Denies dysuria, hematuria or urinary frequency Musculoskeletal Musculoskeletal: Denies arthralgias, back pain, myalgias or neck pain Integumentary Denies abscess, Abrasions or rash Neurologic Neurologic: Reports headache(s); Denies weakness Psychiatric Psychiatric: Denies anxiety, depression or suicidal thoughts Endocrine Endocrinology: Denies polydipsia, polyphagia or polyuria Hematologic/Lymphatic Hematologic/Lymphatic: Denies easy bleeding, easy bruising or lymphadenopathy Allergic/Immunologic Allergic/Immunologic ED: Denies mouth swelling, tongue swelling or urticaria EXAM Physical Exam Const Vital Signs: 01/01/22 09:59 Temperature 97.7 F L Temperature Source Temporal Pulse Rate 64 Respiratory Rate 14 Blood Pressure 128/80 H Blood Pressure Mean 96 Pulse Ox 99 Oxygen Delivery Method Room Air Positive well nourished and well developed General Appearance ED: well developed and NAD HEENT Reports TM's clear and moist mucous membranes normocephalic and atraumatic; Negative for trauma or tenderness Tympanic Membrane ED: Yes TM's clear Eyes PERRL and EOMs intact bilaterally General Eye ED: Negative for pale conjunctiva or scleral icterus Neck no lymphadenopathy, supple and no JVD General: Negative for tenderness Chest Wall inspection of chest normal and palpation of chest normal Chest: Negative for tenderness Resp normal respiratory effort and clear to auscultation bilaterally Effort and Inspection: Negative for respiratory distress or pain with movement Auscultation: Negative for rhonchi, wheezes or diminished lung sounds Cardio regular rate, regular rhythm, S1 normal heart sound, S2 normal heart sound and no murmurs Peripheral Pulses: pulses 2+ throughout GI normal to inspection, nondistended, normoactive bowel sounds, soft to palpation, non-tender, non-distended and no masses Back/Spine no CVA tenderness and no thoracic nor lumbar tenderness Extremity normal to inspection General Extremety ED: Negative for edema General Extremity: Negative for edema Neuro oriented x3, CN's II-XII intact bilaterally, no sensory deficits noted and gait normal Neuro Narrative: Finger-nose and heel ferro testing within normal limits, negative Romberg, negative for drift, fundi benign Sensorium / Orientation: awake, alert, oriented to person, oriented to place and oriented to time Motor Exam: strength 5/5 throughout and strength abnormal Psych mental status grossly normal Skin no rashes or lesions noted and no wounds MDM MDM MDM Narrative Medical decision making narrative: IV line established on arrival. Patient was medicated with Reglan, Benadryl, and Toradol. Her headache did improve down to 3 out of 10. Because patient has atypical headache for 1 month with some family history of brain aneurysm a CTA of the head and neck obtained and this was normal. At this point she is having some classic symptoms of migraine. I will refer her to neurology for follow-up. I will give her 1 dose of Decadron IV as well. Patient advised to return if worsening headache, difficulty with balance or speech, or condition should worsen anyway. Lab Data Attestation: I reviewed the patient's lab results. Labs: Laboratory Results - last 24 hr 01/01/22 10:20 Sodium 137 Potassium 4.2 Chloride 105 Carbon Dioxide 28.0 Anion Gap 4 L BUN 13 Creatinine 0.74 Estim Creat Clear Calc 81.09 Est GFR (MDRD) Af Amer 109 Est GFR (MDRD) Non-Af 90 BUN/Creatinine Ratio 17.5 Glucose 75 Calcium 9.1 Radiography Diagnostic Testing: Clinical Impression(s) from Imaging Studies Head/Neck CTA 01/01/22 10:09 IMPRESSION: 1. No demonstrated major intracranial arterial occlusion or hemodynamically significant stenosis. 2. Unremarkable bilateral cervical carotid and vertebral arteries. Electronically Signed: Gilbert Paul MD at 11:46 EDT Reading Location ID and State: [facility] / [place] , Service support , Discharge Plan Triage Chief Complaint: Headache ED Provider: Elgin Carter Dx/Rx/DC Orders Clinical Impression: Headache, Migraine Instructions: ED Headache Unspecified, ED, Migraine (Classical) Prescriptions: No Action ibuprofen 600 MG tablet 600 mg PO 4X/DAY PRN PRN (Reason: Pain) Qty: 20 0RF metformin 1,000 MG tablet 1,000 mg PO DAILY acetaminophen 650 MG tablet extended release 650 mg PO Q6H PRN PRN (Reason: Pain) atorvastatin 10 mg tablet 10 mg PO DAILY Label Comments: TAKE 1 TABLET BY MOUTH ONCE DAILY BEFORE bedtime sertraline 100 mg tablet 100 mg PO DAILY glimepiride 4 mg tablet 4 mg PO DAILY Label Comments: TAKE 1 TABLET BY MOUTH TWICE DAILY WITH MEALS losartan 25 mg tablet 25 mg PO DAILY Label Comments: Take 1 tablet by mouth once daily. Primary Care Provider: Pat Hancock NP Referrals: Zane Salamanca MD [STAFF PHYSICIAN] - 3-5 Days Pat Hancock NP, SEARCH MANAGER-C [Primary Care Provider] - Disposition Disposition: Home, Self Care
[2022-01-01] MEDS: Ketorolac 15 MG/ML Vial IV (10:21)
[2022-01-01] MEDS: 0.9% Normal Saline 1,000 ML 1000 ML IV (10:21)
[2022-01-01] MEDS: Metoclopramide 10 MG/2 ML Vial IV (10:22)
[2022-01-01] MEDS: DiphenhydrAMINE 50 MG/ML Syringe 25 MG IV (10:22)
[2022-01-01 10:55] LABS: Anion Gap 4 (5-15); BUN 13 mg/dL (7-18); BUN/Creat Ratio 17.5 RATIO (10-20); Calcium,Total 9.1 mg/dL (8.5-10.1); Chloride 105 mmol/L (98-107); Creatinine, Serum 0.74 mg/dL (0.55-1.02); EST Glomerular Filtration Rate 90 mL/min (>60); Est Glom Filt Rate - Afr Amer 109 mL/min (>60); Estimated Creatinine Clearance 81.09 ml/min; Glucose 75 mg/dL (74-106); Potassium 4.2 mmol/L (3.5-5.1); Sodium Level 137 mmol/L (136-145)
[2022-01-01] MEDS: dexAMETHasone 10 MG/ML Vial IV (12:04)
[2022-01-01 12:05] VITALS: BP 127/76; PULSE 57
== END 2022-01-01 12:09 | disposition home or self-care (01) ==
PROVIDERS: Emergency Provider Emergency Medicine; PCP Nurse Practitioner Adult Health; Visit Provider Emergency Medicine
DX: G43.909 Migraine, unspecified, not intractable, without status migrainosus (principal)
CPT/HCPCS: 70496; 70498; 80048; 99282; J7030; Q9967; A4216